=== PATIENT | female | born 1960 | race Caucasian/White ===

== ENCOUNTER → 2017-07-05 | Outpatient (CLI) | payer OTHER ==
[~2017-07-05] MED LIST: ESTR0.1D3 TD; IPRAAER INH; LISI-515 PO; MEDR2.5T19 PO; PAXI40TA PO; ZOLO50TA PO
--- NOTE | 2017-07-06 10:00 | RSPPFT ---
DATE OF PROCEDURE: 07/05/17 COMMENTS: Spirometry with FVC of 3.3 predicted 2.7, FEV1 of 2.1 predicted 2.2, FEV1/FVC ratio 65% predicted 84%. IMPRESSION: On the basis of the above, patient has a mild obstructive lung defect. Post-bronchodilator values have not been measured.
== END ==
LOC: PHRSP 10:20
PROVIDERS: ATTEND Family Medicine
DX: J44.9 Chronic obstructive pulmonary disease, unspecified (principal)
CPT/HCPCS: 94010